=== PATIENT | male | born 1935 | race Hispanic/Latino ===

== ENCOUNTER 2019-10-17 07:58 | Outpatient (CLI) | payer MEDICARE ==
--- NOTE | 2019-10-17 13:24 | Fluoroscopy Report ---
. MODIFIED BARIUM SWALLOW INDICATION: DYSPHAGIA TECHNIQUE: Swallowing was evaluated in the lateral position under direct fluoroscopy. FINDINGS: The patient was evaluated with thin liquids, nectar, honey and puree consistencies. Aspiration was witnessed with thin liquids, nectar and honey consistencies. No aspiration with puree consistency. Moderate vallecular residual was noted with all consistencies. Please correlate with the formal report by speech therapy. IMPRESSION: Aspiration as described. Fluoroscopic time: 1.9 minutes Number of fluoroscopic images: 1 Signer Name: Carson Mix Jr, MD Signed: 10/17/2019 1:20 PM Workstation Name: [id number]
== END 2019-10-17 07:59 | disposition home or self-care (01) ==
LOC: PT 07:58
PROVIDERS: ATTEND Internal Medicine
DX: R13.12 Dysphagia, oropharyngeal phase (principal)
CPT/HCPCS: 74230